=== PATIENT | female | born 1955 | race Caucasian/White ===

== ENCOUNTER 2017-03-19 08:47 | Inpatient (IN) | payer OTHER ==
[~2017-03-19] VITALS: Ht 162.6 cm; Wt 86.6 kg
[~2017-03-19 08:47] MED LIST: FIORICET 50-301 EACH PO; LISINOPRIL10 MG PO; MOTRIN800 MG PO; NORCO 5/3251 TABLET PO; SIMVASTATIN40 MG PO; VENLAFAXINE HCL75 M3 PO
[2017-03-19] MEDS ORDERED: ACYCLOVIR800 MG PO (09:41)
[2017-03-19] MEDS ORDERED: DOXYCYCLINE HY100 MG PO (09:41)
[2017-03-19 10:53] LABS: HEMATOCRIT 38.5 % (36.0-46.0); MCH 28.5 PG (29.0-34.0); MCHC 32.5 G/DL (30.0-36.0); MCV 87.9 FL (83-99); MEAN PLAT.VOLUME 9.9 uM^3 (9.5-12.4); PLATELET COUNT 266 K/uL (156-360); RBC DIS.WIDTH-CV 13.5 % (11.8-14.6); RBC DIS.WIDTH-SD 43.7 % (39-53); RED BLOOD COUNT 4.38 M/uL (3.80-5.20); WHITE BLOOD COUNT 9.8 K/uL (4.1-10.2)
[2017-03-19 11:02] LABS: CHLORIDE 106 mEq/L (99-109); POTASSIUM 4.1 mEq/L (3.7-5.4); SODIUM 138 mEq/L (136-147)
[2017-03-19 11:04] LABS: GLUCOSE 99 mg/dL (70-99)
[2017-03-19 11:05] LABS: ANION GAP 10 MEQ/L (2-14)
[2017-03-19 11:06] LABS: TOTAL BILIRUBIN 0.6 mg/dL (0.0-1.0)
[2017-03-19 11:07] LABS: ALKALINE PHOSPHATASE 97 IU/L (3-129)
[2017-03-19 11:08] LABS: GFR ESTIMATE (CALCULATED) > 59 mL/min/
[2017-03-19 11:09] LABS: UREA NITROGEN (BUN) 11 mg/dL (9-23)
[2017-03-19] MEDS ORDERED: CLARITIN,ALAVAR10 MG PO (12:03)
[2017-03-19] MEDS ORDERED: ZETIA10 MG PO (12:03)
[2017-03-19] MEDS ORDERED: NORCO 5/3251 TABLET PO (13:13)
[2017-03-19 14:26] LABS: C-REACTIVE PROTEIN 25.5 MG/L (0-10)
[2017-03-19 15:58] VITALS: BP 126/78
[2017-03-19 19:04] VITALS: BP 98/57
[2017-03-19 23:26] VITALS: BP 107/61
[2017-03-20 02:50] VITALS: BP 101/60
[2017-03-20 07:05] VITALS: BP 110/69
[2017-03-20 07:07] LABS: HEMATOCRIT 30.7 % (36.0-46.0); MCH 29.8 PG (29.0-34.0); MCHC 32.6 G/DL (30.0-36.0); MCV 91.4 FL (83-99); MEAN PLAT.VOLUME 9.9 uM^3 (9.5-12.4); PLATELET COUNT 206 K/uL (156-360); RBC DIS.WIDTH-CV 13.8 % (11.8-14.6); RBC DIS.WIDTH-SD 46.2 % (39-53); WHITE BLOOD COUNT 6.2 K/uL (4.1-10.2)
[2017-03-20 07:08] LABS: RED BLOOD COUNT 3.36 M/uL (3.80-5.20)
[2017-03-20 07:31] LABS: ANION GAP 5 MEQ/L (2-14); CHLORIDE 112 MEQ/L (99-109); GFR ESTIMATE (CALCULATED) > 59 mL/min/; GLUCOSE 90 mg/dL (70-99); POTASSIUM 4.1 MEQ/L (3.7-5.4); SAMPLE HEMOLYSIS CHECK 0; SAMPLE ICTERIC CHECK 0; SAMPLE LIPEMIA CHECK 0; SODIUM 142 MEQ/L (136-147); UREA NITROGEN (BUN) 9 mg/dL (9-23)
[2017-03-20 12:43] LABS: METH RESISTANT S AUREUS PCR NEGATIVE (NEGATIVE); PROBE CHECK PASS; SPECIMEN PROCESSING CONTROL PASS
[2017-03-20 16:00] VITALS: BP 107/60
[2017-03-20 23:12] VITALS: BP 120/72
[2017-03-20 23:20] VITALS: BP 159/67
[2017-03-21 06:45] VITALS: BP 113/77
[2017-03-21 15:25] VITALS: BP 112/63
[2017-03-21 23:45] VITALS: BP 116/73
[2017-03-22 07:21] LABS: HEMATOCRIT 32.9 % (36.0-46.0); MCH 29.2 PG (29.0-34.0); MCHC 32.8 G/DL (30.0-36.0); MCV 88.9 FL (83-99); MEAN PLAT.VOLUME 10.1 uM^3 (9.5-12.4); PLATELET COUNT 230 K/uL (156-360); RBC DIS.WIDTH-CV 13.2 % (11.8-14.6); RBC DIS.WIDTH-SD 43.2 % (39-53); WHITE BLOOD COUNT 6.4 K/uL (4.1-10.2)
[2017-03-22 07:40] VITALS: BP 133/80
[2017-03-22 07:44] LABS: GFR ESTIMATE (CALCULATED) > 59 mL/min/; UREA NITROGEN (BUN) 7 mg/dL (9-23)
[2017-03-22] MEDS ORDERED: KEFLEX500 MG PO (13:54)
[2017-03-22] MEDS ORDERED: HYDROCODON-ACE1 EAC7 PO (14:44)
== END 2017-03-22 15:37 | disposition home or self-care (01) | DRG 603 ==
LOC: EME 08:47 → 2EAST 13:02 → EDOF 13:02 → 2EAST 14:47
PROVIDERS: Internal Medicine; Nurse Practitioner Family
DX: L03.213 Periorbital cellulitis (principal); L03.211 Cellulitis of face; I10 Essential (primary) hypertension; E78.5 Hyperlipidemia, unspecified; Z79.899 Other long term (current) drug therapy; Z68.32 Body mass index [BMI] 32.0-32.9, adult; Z72.0 Tobacco use
CPT/HCPCS: 70487; 80048; 80053; 80202; 82565; 83605; 84520; 85027; 86140; 87040; 87070; 87075; 87077; 87147; 87186; 87205; 87641; 99281; 99285; J0690; J1650; J1885; J2405; J3370; J7030; J7050

== ENCOUNTER 2017-05-19 11:42 | Inpatient (IN) | payer OTHER ==
[~2017-05-19] VITALS: Ht 162.6 cm; Wt 75.9 kg
[~2017-05-19 11:42] MED LIST changes: +ACYCLOVIR800 MG PO; +CLARITIN,ALAVAR10 MG PO; +DOXYCYCLINE HY100 MG PO; +HYDROCODON-ACE1 EAC7 PO; +KEFLEX500 MG PO; +ZETIA10 MG PO
[2017-05-19 13:11] LABS: HEMATOCRIT 40.6 % (36.0-46.0); MCH 28.3 PG (29.0-34.0); MCV 88.5 FL (83-99); MEAN PLAT.VOLUME 10.5 uM^3 (9.5-12.4); PLATELET COUNT 213 K/uL (156-360); RBC DIS.WIDTH-CV 13.2 % (11.8-14.6); RED BLOOD COUNT 4.59 M/uL (3.80-5.20); WHITE BLOOD COUNT 12.7 K/uL (4.1-10.2)
[2017-05-19 13:23] LABS: CHLORIDE 101 mEq/L (99-109); POTASSIUM 4.3 mEq/L (3.7-5.4); SODIUM 136 mEq/L (136-147)
[2017-05-19 13:25] LABS: GLUCOSE 98 mg/dL (70-99)
[2017-05-19 13:27] LABS: ANION GAP 12 MEQ/L (2-14)
[2017-05-19 13:29] LABS: GFR ESTIMATE (CALCULATED) > 59 mL/min/
[2017-05-19 13:30] LABS: UREA NITROGEN (BUN) 7 mg/dL (9-23)
[2017-05-19 13:37] LABS: ADD MIUA? YES; BILIRUBIN NEGATIVE; BLOOD MODERATE; COLOR YELLOW ((YELLOW)); GLUCOSE (STRIP) NEGATIVE; KETONES 5; LEUKOCYTES TRACE; NITRITE NEGATIVE; PROTEIN (STRIP) NEGATIVE; SPECIFIC GRAVITY 1.015 (1.000-1.030)
[2017-05-19 13:42] LABS: BACTERIA RARE /HPF; EPITHELIAL CELLS 1+ /HPF; HYALINE CASTS 0-5 /LPF; MUCUS 2+ /LPF; WHITE BLOOD CELLS 0-5 /HPF (0-5)
[2017-05-19 17:23] VITALS: BP 105/62
[2017-05-19 20:17] VITALS: BP 93/52
[2017-05-19 23:56] VITALS: BP 85/51
[2017-05-20 03:47] VITALS: BP 97/57
[2017-05-20 07:12] VITALS: BP 92/57
[2017-05-20 07:35] LABS: EOSINOPHIL (%) 2.9 % (0-5); EOSINOPHIL COUNT 0.3 K/uL (0-0.3); HEMATOCRIT 31.8 % (36.0-46.0); IMMATURE GRANULOCYTE (%) 0.4 % (0.0-0.7); INSTRUMENT ABS NEUTROPHIL CT 5.9 K/uL; MCH 29.6 PG (29.0-34.0); MCHC 32.1 G/DL (30.0-36.0); MCV 92.2 FL (83-99); MEAN PLAT.VOLUME 10.8 uM^3 (9.5-12.4); MONOCYTE (%) 9.7 % (3-12); MONOCYTE COUNT 0.9 K/uL (0-0.8); NEUTROPHIL (%) 64.9 % (45-76); NEUTROPHIL COUNT 5.9 K/uL (1.8-6.4); PLATELET COUNT 196 K/uL (156-360); RBC DIS.WIDTH-CV 13.6 % (11.8-14.6); RBC DIS.WIDTH-SD 46.3 % (39-53); WHITE BLOOD COUNT 9.1 K/uL (4.1-10.2)
[2017-05-20 07:42] LABS: RED BLOOD COUNT 3.45 M/uL (3.80-5.20)
[2017-05-20 07:50] LABS: ANION GAP 4 MEQ/L (2-14); CHLORIDE 108 MEQ/L (99-109); GFR ESTIMATE (CALCULATED) > 59 mL/min/; GLUCOSE 96 mg/dL (70-99); POTASSIUM 4.7 MEQ/L (3.7-5.4); SAMPLE HEMOLYSIS CHECK 0; SAMPLE ICTERIC CHECK 0; SAMPLE LIPEMIA CHECK 0; SODIUM 140 MEQ/L (136-147); UREA NITROGEN (BUN) 14 mg/dL (9-23)
[2017-05-20 16:25] VITALS: BP 135/56
[2017-05-20 23:54] VITALS: BP 105/67
[2017-05-21 04:19] LABS: EOSINOPHIL (%) 3.3 % (0-5); EOSINOPHIL COUNT 0.2 K/uL (0-0.3); HEMATOCRIT 31.4 % (36.0-46.0); IMMATURE GRANULOCYTE (%) 0.1 % (0.0-0.7); INSTRUMENT ABS NEUTROPHIL CT 4.2 K/uL; LYMPHOCYTE COUNT 1.9 K/uL (1.0-2.8); MCH 28.6 PG (29.0-34.0); MCHC 31.8 G/DL (30.0-36.0); MCV 89.7 FL (83-99); MEAN PLAT.VOLUME 10.4 uM^3 (9.5-12.4); MONOCYTE COUNT 0.6 K/uL (0-0.8); NEUTROPHIL COUNT 4.2 K/uL (1.8-6.4); PLATELET COUNT 192 K/uL (156-360); RBC DIS.WIDTH-CV 13.3 % (11.8-14.6); RBC DIS.WIDTH-SD 43.7 % (39-53); WHITE BLOOD COUNT 6.9 K/uL (4.1-10.2)
[2017-05-21 04:28] LABS: CHLORIDE 110 mEq/L (99-109); POTASSIUM 4.3 mEq/L (3.7-5.4); SODIUM 141 mEq/L (136-147)
[2017-05-21 04:31] LABS: ANION GAP 6 MEQ/L (2-14)
[2017-05-21 04:51] LABS: GLUCOSE 98 mg/dL (70-99)
[2017-05-21 04:54] LABS: GFR ESTIMATE (CALCULATED) > 59 mL/min/
[2017-05-21 04:55] LABS: UREA NITROGEN (BUN) 8 mg/dL (9-23)
[2017-05-21 07:18] VITALS: BP 115/72
[2017-05-21 15:20] VITALS: BP 130/77
[2017-05-21 23:48] VITALS: BP 131/73
[2017-05-22 09:28] VITALS: BP 125/69
[2017-05-22 10:07] LABS: HEMATOCRIT 33.9 % (36.0-46.0); MCH 28.4 PG (29.0-34.0); MCHC 31.3 G/DL (30.0-36.0); MCV 90.9 FL (83-99); MEAN PLAT.VOLUME 10.2 uM^3 (9.5-12.4); PLATELET COUNT 220 K/uL (156-360); RBC DIS.WIDTH-CV 13.2 % (11.8-14.6); RBC DIS.WIDTH-SD 44.3 % (39-53); RED BLOOD COUNT 3.73 M/uL (3.80-5.20); WHITE BLOOD COUNT 7.6 K/uL (4.1-10.2)
[2017-05-22 15:30] VITALS: BP 106/64
[2017-05-22 23:34] VITALS: BP 133/75
[2017-05-23 05:19] LABS: EOSINOPHIL (%) 0.4 % (0-5); HEMATOCRIT 29.6 % (36.0-46.0); IMMATURE GRANULOCYTE (%) 0.5 % (0.0-0.7); IMMATURE GRANULOCYTE COUNT 0.1 K/uL; INSTRUMENT ABS NEUTROPHIL CT 7.1 K/uL; LYMPHOCYTE COUNT 1.8 K/uL (1.0-2.8); MCH 29.8 PG (29.0-34.0); MCHC 32.8 G/DL (30.0-36.0); MCV 90.8 FL (83-99); MEAN PLAT.VOLUME 10.7 uM^3 (9.5-12.4); MONOCYTE (%) 7.3 % (3-12); MONOCYTE COUNT 0.7 K/uL (0-0.8); NEUTROPHIL (%) 73.2 % (45-76); NEUTROPHIL COUNT 7.1 K/uL (1.8-6.4); PLATELET COUNT 221 K/uL (156-360); RBC DIS.WIDTH-SD 42.8 % (39-53); RED BLOOD COUNT 3.26 M/uL (3.80-5.20); WHITE BLOOD COUNT 9.7 K/uL (4.1-10.2)
[2017-05-23 07:30] VITALS: BP 116/69
[2017-05-23] MEDS ORDERED: IBUPROFEN600 MG PO (07:46)
[2017-05-23] MEDS ORDERED: KEFLEX500 MG PO (07:46)
[2017-05-23] MEDS ORDERED: HYDROCODON-ACE1 EAC7 PO (07:46)
== END 2017-05-23 09:45 | disposition home or self-care (01) | DRG 746 ==
LOC: EME 11:42 → EDOF 16:18 → 2EAST 16:18 → ENRESERV 16:20 → 2EAST 17:15
PROVIDERS: Hospitalist; Nurse Practitioner Family
PROC: 0U9MXZZ Drainage of Vulva, External Approach (ICD-10-PCS; principal; 2017-05-19)
PROC: 0U9M00Z Drainage of Vulva with Drainage Device, Open Approach (ICD-10-PCS; 2017-05-22)
DX: N76.4 Abscess of vulva (principal); L03.311 Cellulitis of abdominal wall; N76.2 Acute vulvitis; B95.61 Methicillin susceptible Staphylococcus aureus infection as the cause of diseases classified elsewhere; I10 Essential (primary) hypertension; E78.5 Hyperlipidemia, unspecified; F32.9 Major depressive disorder, single episode, unspecified; Z86.14 Personal history of Methicillin resistant Staphylococcus aureus infection; Z98.51 Tubal ligation status; Z80.8 Family history of malignant neoplasm of other organs or systems; Z80.49 Family history of malignant neoplasm of other genital organs
CPT/HCPCS: 72193; 80048; 80202; 81003; 83605; 85025; 85027; 87040; 87070; 87075; 87077; 87147; 87186; 87205; 99281; 99285; J0131; J1100; J1170; J1885; J2250; J2405; J3010; J3370; J7040

== ENCOUNTER 2017-10-23 20:43 | Emergency (ER) | payer OTHER ==
[~2017-10-23] VITALS: Ht 162.6 cm; Wt 77.2 kg
[~2017-10-23 20:43] MED LIST changes: +IBUPROFEN600 MG PO
[2017-10-23 21:29] LABS: HEMATOCRIT 35.3 % (36.0-46.0); HEMOGLOBIN 11.5 G/DL (11.9-15.5); MCH 27.7 PG (29.0-34.0); MCHC 32.6 G/DL (30.0-36.0); MCV 85.1 FL (83-99); PLATELET COUNT 273 K/uL (156-360); RBC DIS.WIDTH-CV 12.7 % (11.8-14.6); RBC DIS.WIDTH-SD 38.8 % (39-53); RED BLOOD COUNT 4.15 M/uL (3.80-5.20); WHITE BLOOD COUNT 9.2 K/uL (4.1-10.2)
[2017-10-23 21:39] LABS: ALBUMIN 4.2 g/dL (3.2-4.8); CHLORIDE 105 mEq/L (99-109); SODIUM 138 mEq/L (136-147)
[2017-10-23 21:41] LABS: GLUCOSE 99 mg/dL (70-99)
[2017-10-23 21:42] LABS: TOTAL PROTEIN 7.8 g/dL (6.4-8.3)
[2017-10-23 21:43] LABS: TOTAL BILIRUBIN 0.2 mg/dL (0.0-1.0)
[2017-10-23 21:45] LABS: ALKALINE PHOSPHATASE 90 IU/L (3-129); CREATININE 0.8 mg/dL (0.6-1.3); GFR ESTIMATE (CALCULATED) > 59 mL/min/
[2017-10-23 21:46] LABS: UREA NITROGEN (BUN) 13 mg/dL (9-23)
[2017-10-23 21:47] LABS: AST (GOT) 14 IU/L (2-34)
[2017-10-23 21:48] LABS: ALT (GPT) 10 IU/L (3-49)
[2017-10-23] MEDS ORDERED: FLEXERIL10 MG PO (23:26)
[2017-10-23 23:32] VITALS: BP 126/88
== END 2017-10-23 23:56 | disposition home or self-care (01) ==
LOC: EME 20:43
PROVIDERS: Physician Assistant
DX: R68.84 Jaw pain (principal); M79.645 Pain in left finger(s); M54.2 Cervicalgia; R51 Headache; M25.512 Pain in left shoulder; M79.602 Pain in left arm; R10.32 Left lower quadrant pain; V49.40XA Driver injured in collision with unspecified motor vehicles in traffic accident, initial encounter; I10 Essential (primary) hypertension; E78.5 Hyperlipidemia, unspecified; Z88.8 Allergy status to other drugs, medicaments and biological substances
CPT/HCPCS: 70110; 73130; 80053; 85027; 99281; 99283

== ENCOUNTER 2018-04-25 15:37 | Observation (INO) | payer OTHER ==
[~2018-04-25] VITALS: Ht 162.6 cm; Wt 71.6 kg
[~2018-04-25 15:37] MED LIST changes: +FLEXERIL10 MG PO
[2018-04-25 16:18] LABS: HEMATOCRIT 31.5 % (36.0-46.0); MCH 24.6 PG (29.0-34.0); MCHC 31.7 G/DL (30.0-36.0); MCV 77.6 FL (83-99); PLATELET COUNT 180 K/uL (156-360); RBC DIS.WIDTH-CV 14.4 % (11.8-14.6); RBC DIS.WIDTH-SD 40.4 % (39-53); RED BLOOD COUNT 4.06 M/uL (3.80-5.20); WHITE BLOOD COUNT 8.3 K/uL (4.1-10.2)
[2018-04-25 16:40] LABS: ALBUMIN 3.6 G/DL (3.2-4.8); CHLORIDE 101 MEQ/L (99-109); SODIUM 136 MEQ/L (136-147); TOTAL BILIRUBIN 0.4 MG/DL (0.0-1.0)
[2018-04-25 16:46] LABS: ALKALINE PHOSPHATASE 90 IU/L (3-129); ALT (GPT) 6 IU/L (3-49); AST (GOT) 14 IU/L (2-34); CREATININE 0.8 MG/DL (0.6-1.3); GFR ESTIMATE (CALCULATED) > 59 mL/min/; GLUCOSE 101 mg/dL (70-99); LIPASE 41 U/L (1.0-51.0); TOTAL PROTEIN 7.4 G/DL (6.4-8.3); UREA NITROGEN (BUN) 8 mg/dL (9-23)
[2018-04-25 17:15] LABS: APPEARANCE CLEAR ((CLEAR)); BILIRUBIN NEGATIVE; BLOOD SMALL; COLOR YELLOW ((YELLOW)); GLUCOSE (STRIP) NEGATIVE; KETONES NEGATIVE; LEUKOCYTES MODERATE; NITRITE NEGATIVE; PROTEIN (STRIP) NEGATIVE; SPECIFIC GRAVITY 1.012 (1.000-1.030)
[2018-04-25 17:23] LABS: BACTERIA RARE /HPF; EPITHELIAL CELLS RARE /HPF; HYALINE CASTS 0-5 /LPF; MUCUS TRACE /LPF; RED BLOOD CELLS 0-5 /HPF (0-5); UCUL ADDED? NO; WHITE BLOOD CELLS 0-5 /HPF (0-5)
[2018-04-25] MEDS ORDERED: ZESTRIL5 MG PO (20:55)
[2018-04-25] MEDS ORDERED: FLEXERIL10 MG PO (20:55)
[2018-04-25] MEDS ORDERED: ENDOCET 5-3251 EACH PO (20:56)
[2018-04-25] MEDS ORDERED: ONE DAILY1 EAC3 PO (20:56)
[2018-04-25 21:39] LABS: BASOPHIL (%) 0.6 % (0-1); EOSINOPHIL (%) 11.5 % (0-5); IMMATURE GRANULOCYTE (%) 0.4 % (0.0-0.7); LYMPHOCYTE (%) 18.8 % (15-42); MONOCYTE (%) 6.9 % (3-12); NEUTROPHIL (%) 61.8 % (45-76)
[2018-04-25 21:40] LABS: BASOPHIL COUNT 0.1 K/uL (0-0.1); LYMPHOCYTE COUNT 1.6 K/uL (1.0-2.8); MONOCYTE COUNT 0.6 K/uL (0-0.8); NEUTROPHIL COUNT 5.1 K/uL (1.8-6.4)
[2018-04-25 23:17] VITALS: BP 148/76
[2018-04-26 04:11] VITALS: BP 126/61
[2018-04-26 07:42] VITALS: BP 137/73
[2018-04-28] MEDS ORDERED: EPIPEN ADU0.3 MG/0.3 IM (14:07)
== END 2018-04-26 15:46 | disposition home or self-care (01) ==
LOC: EME 15:37 → ENRESERV 21:03 → EDOF 21:13 → ENRESERV 22:13 → 4SOUTH 23:15
PROVIDERS: Physician Assistant Medical
DX: K86.9 Disease of pancreas, unspecified (principal); K55.1 Chronic vascular disorders of intestine; E27.9 Disorder of adrenal gland, unspecified; R59.0 Localized enlarged lymph nodes; I10 Essential (primary) hypertension; E78.5 Hyperlipidemia, unspecified; K59.09 Other constipation; F43.10 Post-traumatic stress disorder, unspecified; K44.9 Diaphragmatic hernia without obstruction or gangrene; D64.9 Anemia, unspecified; F32.9 Major depressive disorder, single episode, unspecified; Z80.3 Family history of malignant neoplasm of breast; Z80.1 Family history of malignant neoplasm of trachea, bronchus and lung; Z88.6 Allergy status to analgesic agent; Z80.8 Family history of malignant neoplasm of other organs or systems; Z80.49 Family history of malignant neoplasm of other genital organs; Z80.52 Family history of malignant neoplasm of bladder
CPT/HCPCS: 74177; 80053; 81003; 82803; 83605; 83690; 85025 91; 85027; 99281; 99285; G0378; J1644; J2270; J2405; J3010; J7030

== ENCOUNTER → 2018-04-30 | Outpatient (CLI) | payer OTHER ==
[~2018-04-30] MED LIST changes: +ENDOCET 5-3251 EACH PO; +EPIPEN ADU0.3 MG/0.3 IM; +ONE DAILY1 EAC3 PO; +ZESTRIL5 MG PO
[2018-04-30 09:27] LABS: PTT 28.5 SEC (25-37)
[2018-04-30 09:49] LABS: INTER. NORMALIZED RATIO 1.2
== END | disposition home or self-care (01) ==
LOC: OPR 08:20 → EDSTATUS 09:00
PROVIDERS: Radiology Diagnostic Radiology
PROC: 0GB33ZX Excision of Right Adrenal Gland, Percutaneous Approach, Diagnostic (ICD-10-PCS; principal; 2018-04-30)
DX: C74.01 Malignant neoplasm of cortex of right adrenal gland (principal)
CPT/HCPCS: 77012; 85610; 85730; 88305; 88341 TC; 88342 TC; J3010